=== PATIENT | female | born 1990 | race Two or more races ===

== ENCOUNTER 2021-11-30 15:00 | Emergency (ER) | payer SELFPAY ==
[~2021-11-30] VITALS: Ht 157.5 cm; Wt 90.3 kg
[2021-11-30 15:00] VITALS: BP 133/80
[2021-11-30] MEDS ORDERED: IBUPROFEN 800 MG TAB PO ONE (16:30)
[2021-11-30] MEDS ORDERED: IBUP800T27 PO (16:31)
== END 2021-11-30 16:41 | disposition home or self-care (01) ==
LOC: ER 15:00
DX: G44.209 Tension-type headache, unspecified, not intractable (principal)
CPT/HCPCS: 70450